=== PATIENT | female | born 1990 | race Caucasian/White ===

== ENCOUNTER 2017-10-31 11:52 | Emergency (ER) | payer BC, MEDICAID ==
--- NOTE | 2017-10-31 13:13 | EDM.PDOC ---
ED HPI GENERAL MEDICAL PROBLEM - General Chief Complaint: Headache Stated Complaint: headache Time Seen by Provider: 10/31/17 13:13 Source of Information: Reports: Patient History Limitations: Reports: No Limitations - History of Present Illness INITIAL COMMENTS - FREE TEXT/NARRATIVE: pt arrived with severe pain on the rt side of her neck and a severe headache. She has not had an injury. Onset: Gradual, Other ( This has been going on for the past few days. ) Duration: Hour(s): Location: Reports: Head, Neck Associated Symptoms: Reports: Headaches, Nausea/Vomiting Headache Pain Score (Numeric/FACES): 3 - Related Data Allergies Allergy/AdvReac Type Severity Reaction Status Date / Time acetaminophen [From Tylenol] Allergy Rash Verified 02/06/16 09:14 Penicillins Allergy Anaphylactic Verified 02/06/16 09:14 Shock zolpidem [From Ambien] Allergy Hallucinati Verified 02/06/16 09:14 ons Home Meds: Home Meds Albuterol/Ipratropium [Combivent Respimat] 1 puff INH DAILY 10/31/17 [History] Ibuprofen [Ibu] 1 tab PO Q8H PRN 10/31/17 [History] Ipratropium/Albuterol Sulfate [Iprat-Albut 0.5-3(2.5) MG/3 ML] 1 ampule INH DAILY 10/31/17 [History] predniSONE 1 tab PO DAILY PRN 10/31/17 [History] Past Medical History HEENT History: Reports: Impaired Vision Respiratory History: Reports: Asthma, Bronchitis, Recurrent, Pneumonia, Recurrent Genitourinary History: Reports: UTI, Recurrent 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: Musculoskeletal History: Reports: Arthritis Neurological History: Reports: Migraines Psychiatric History: Reports: Anxiety, Bipolar, Depression, Panic Attack, Psych Hospitalization(s) - Past Surgical History HEENT Surgical History: Reports: Adenoidectomy, Myringotomy w Tube(s), Tonsillectomy GI Surgical History: Reports: Appendectomy Female Surgical History: Reports: Section Musculoskeletal Surgical History: Reports: Arthroscopic Knee Social & Family History - Family History Family Medical History: Noncontributory - Tobacco Use Smoking Status *Q: Current Every Day Smoker Years of Tobacco use: 10 Packs/Tins Daily: 0.5 Second Hand Smoke Exposure: Yes - Caffeine Use Caffeine Use: Reports: Soda - Recreational Drug Use Recreational Drug Use: No ED ROS GENERAL - Review of Systems Review Of Systems: See Below Constitutional: Reports: No Symptoms HEENT: Reports: No Symptoms Respiratory: Reports: No Symptoms Cardiovascular: Reports: No Symptoms Endocrine: Reports: No Symptoms GI/Abdominal: Reports: Nausea, Vomiting Musculoskeletal: Reports: Muscle Stiffness, Other (muscle pain on the rt side of the neck. ) Skin: Reports: No Symptoms Neurological: Reports: No Symptoms - Physical Exam Exam: See Below Text/Narrative:: Pt is here with a severe headache on the rt side. It goes up the back of the neck. Exam Limited By: No Limitations General Appearance: Alert, Anxious, Moderate Distress Ears: Normal TMs Nose: Normal Inspection Throat/Mouth: Normal Inspection Head Exam: Atraumatic Neck: Tender Lateral, Other (pt is very tender in the post cervical area on the rt side. ) Respiratory/Chest: No Respiratory Distress Cardiovascular: Regular Rate, Rhythm GI/Abdominal: Soft, Non-Tender (Female) Exam: Deferred Rectal (Female) Exam: Deferred Neuro Exam (Abbreviated): Alert, Oriented, Normal Cognition Back Exam: Normal Inspection Extremities: Normal Inspection Course - Vital Signs Last Recorded V/S: Last Vital Signs Temp 36.1 C 10/31/17 16:11 Pulse 73 10/31/17 16:11 Resp 14 10/31/17 16:11 BP 100/59 L 10/31/17 16:11 Pulse Ox 97 10/31/17 16:11 - Orders/Labs/Meds Labs: Laboratory Tests 10/31/17 10/31/17 Range/Units 13:31 14:08 WBC 10.1 (4.5-11.0) K/uL RBC 4.85 (3.30-5.50) M/uL Hgb 14.9 (12.0-15.0) g/dL Hct 43.8 (36.0-48.0) % MCV 90 (80-98) fL MCH 31 (27-31) pg MCHC 34 (32-36) % Plt Count 278 (150-400) K/uL Neut % (Auto) 54 (36-66) % Lymph % (Auto) 34 (24-44) % [place] % (Auto) 9 H (2-6) % Eos % (Auto) 3 (2-4) % Baso % (Auto) 0 (0-1) % Urine HCG, Qual Negative Meds: Medications Discontinued Medications Generic Name Dose Route Start Last Admin Trade Name Tiffanie PRN Reason Stop Dose Admin Cyclobenzaprine HCl 10 mg 10/31/17 14:59 10/31/17 15:04 Flexeril PO 10/31/17 15:00 10 mg ONETIME ONE Administration Diphenhydramine HCl 25 mg 10/31/17 13:10 10/31/17 13:30 Benadryl IVPUSH 10/31/17 13:11 25 mg ONETIME ONE Administration Hydromorphone HCl 0.5 mg 10/31/17 14:59 10/31/17 15:04 Dilaudid IVPUSH 10/31/17 15:00 0.5 mg ONETIME ONE Administration Sodium Chloride 1,000 mls @ 999 mls/hr 10/31/17 13:15 10/31/17 13:44 Normal Saline IV 999 mls/hr ASDIRECTED ANTWAN Administration Ketorolac Tromethamine 30 mg 10/31/17 13:10 10/31/17 13:43 Toradol IVPUSH 10/31/17 13:11 30 mg ONETIME ONE Administration Ondansetron HCl 4 mg 10/31/17 13:09 10/31/17 13:29 Zofran IVPUSH 10/31/17 13:10 4 mg ONETIME ONE Administration Ondansetron HCl 4 mg 10/31/17 15:15 10/31/17 15:21 Zofran IVPUSH 10/31/17 15:16 4 mg ONETIME ONE Administration - Re-Assessments/Exams Free Text/Narrative Re-Assessment/Exam: 10/31/17 15:28 pt had a cervical spine series and a cat scan of the head which was neg. She was given torodol and dilaudid with good relief. She also received flexeril 10mg po, 10/31/17 16:00 Departure - Departure Time of Disposition: 16:01 Disposition: Home, Self-Care 01 Condition: Fair Clinical Impression: Cervical paraspinal muscle spasm, Headache - Discharge Information Instructions: Muscle Cramps and Spasms, [id number], General Headache Without Cause, [id number] Referrals: PCP,None [Primary Care Provider] - Forms: ED Department Discharge Care Plan Goals: moist warm packs to the left post cervical area, stretching exercises, flexeril 10mg hs, torodol 10mg q6h prn for pain. If not improving pt should receive PT
[2017-10-31] MEDS: Ondansetron 4 MG/2 ML SDV IVPUSH ONE ×2 (13:29→15:21)
[2017-10-31] MEDS: diphenhydrAMINE 50 MG/ML SDV IVPUSH ONE (13:30)
[2017-10-31] MEDS: Ketorolac 30 MG/ML SDV IVPUSH ONE (13:43)
[2017-10-31] MEDS: Sodium Chloride 0.9% 1,000 ML IV SCH (13:44)
--- NOTE | 2017-10-31 14:59 | CT ---
Head wo Cont HISTORY: severe headache. TECHNIQUE: Spiral noncontrast CT scan of the brain was obtained along with high-resolution bone windo w reconstructions. Auto dosage and iterative reconstruction techniques were employed. FINDINGS: No acute intracranial hemorrhage or infarct is identified. There is no mass lesion, mass effect, midl ine shift, or ventricular abnormality. No abnormal extra-axial fluid collections are seen. Visualized paranasal sinuses and mastoid air cells are clear. Bone windows show no evidence for skull fracture. IMPRESSION: No hemorrhage, infarct, or other acute intracranial abnormality is identified. Findings were discussed with Dr. Lopez in the emergency department at 1454 hours.
[2017-10-31] MEDS: HYDROmorphone 0.5 MG/0.5 ML Syringe IVPUSH ONE (15:04)
[2017-10-31] MEDS: Cyclobenzaprine 10 MG Tab PO ONE (15:04)
--- NOTE | 2017-10-31 15:23 | CR ---
Cervical Spine Min 4V HISTORY: severe pain in rt post cervical FINDINGS: Vertebral body alignment is satisfactory. No compression fracture or disk space narrowing is seen. Sp inous processes, posterior elements, and facet joints appear intact and in satisfactory alignment. Ne ural foramina appear widely patent on the oblique views. No odontoid abnormality can be seen. Prevert ebral soft tissues appear normal. IMPRESSION: No acute cervical spine abnormality is identified.
[2017-10-31 16:12] VITALS: BP 100/59
== END 2017-10-31 16:15 | disposition home or self-care (01) ==
LOC: JP.ED 11:52
DX: M62.830 Muscle spasm of back (principal); R51 Headache; F17.210 Nicotine dependence, cigarettes, uncomplicated; Z88.8 Allergy status to other drugs, medicaments and biological substances; Z79.899 Other long term (current) drug therapy
CPT/HCPCS: 36415; 70450; 72050; 81025; 85025; 96361; 96374; 96375; 96376; 99285; A9270; J1170; J1200; J1885; J2405; J7030

== ENCOUNTER 2024-01-17 07:22 | Emergency (ER) | payer SELFPAY ==
[2024-01-17] MEDS: Albuterol/Ipratropium 3.0-0.5 MG/3 ML Neb Soln NEB ONE ×2 (07:38→08:47)
[2024-01-17] MEDS: predniSONE 20 MG Tab PO ONE (07:49)
[2024-01-17 08:38] LABS: CORONAVIRUS COVID-19 NAA NEGATIVE (NEGATIVE); INFLUENZA A NAA NEGATIVE (NEGATIVE); INFLUENZA B NAA NEGATIVE (NEGATIVE); RESPIRATORY SYNCYTIAL VIR NAA NEGATIVE (NEGATIVE)
[2024-01-17 08:48] VITALS: BP 117/80; PULSE 99
== END 2024-01-17 09:35 | disposition home or self-care (01) ==
LOC: JP.ED 07:22
DX: J45.901 Unspecified asthma with (acute) exacerbation (principal); Z88.0 Allergy status to penicillin; Z88.8 Allergy status to other drugs, medicaments and biological substances; Z79.899 Other long term (current) drug therapy; Z90.49 Acquired absence of other specified parts of digestive tract
CPT/HCPCS: 0241U; 71045; 94640; 99285; J7512; J7620

== ENCOUNTER 2024-04-01 23:01 | Emergency (ER) | payer SELFPAY ==
[2024-04-01 23:14] VITALS: BP 140/60; PULSE 125
[2024-04-01] MEDS: Albuterol/Ipratropium 3.0-0.5 MG/3 ML Neb Soln NEB ONE (23:30)
[2024-04-02] MEDS: methylPREDNISolone Sodium Succinate 125 MG/2 ML SDV IM ONE (00:01)
[2024-04-02 00:10] LABS: BASOPHILS ABSOLUTE AUTO 0.03 K/uL (0.00-0.10); BASOPHILS PERCENT AUTO 0.3 % (0.1-1.3); EOSINOPHILS ABSOLUTE AUTO 0.09 K/uL (0.00-0.40); HEMATOCRIT 42.9 % (34.3-46.0); HEMOGLOBIN 15.2 g/dL (11.2-15.5); IMMATURE GRAN ABSOLUTE AUTO 0.18 K/uL (0.00-0.23); LYMPHOCYTES ABSOLUTE AUTO 1.11 K/uL (0.8-3.3); LYMPHOCYTES PERCENT AUTO 12.1 % (11.4-47.7); MEAN CORPUSCULAR HGB CONC 35.4 g/dL (31.6-35.5); MEAN CORPUSCULAR VOLUME 90.3 fL (81.4-99.0); MONOCYTES ABSOLUTE AUTO 0.96 K/uL (0.20-0.90); MONOCYTES PERCENT AUTO 10.5 % (3.3-12.6); NEUTROPHILS PERCENT AUTO 74.1 % (40.0-78.1); PLATELET COUNT,PLT 240 K/uL (130-375); RED BLOOD CELL COUNT 4.75 M/uL (3.77-5.24); WHITE BLOOD CELL COUNT,WBC 9.2 K/uL (3.2-11.0)
[2024-04-02 00:22] LABS: CALCIUM 8.9 mg/dL (8.5-10.1); CREATININE 0.8 mg/dL (0.6-1.0); EST CRCL DRUG DOSING (CG) 100.9 mL/min; POTASSIUM,K 3.6 mmol/L (3.6-5.2)
[2024-04-02 00:33] LABS: ANION GAP 11.6 mmol/L (5.0-14.0)
== END 2024-04-02 00:52 | disposition home or self-care (01) ==
LOC: JP.ED 23:01
DX: J45.909 Unspecified asthma, uncomplicated (principal); J06.9 Acute upper respiratory infection, unspecified; F17.210 Nicotine dependence, cigarettes, uncomplicated; Z88.0 Allergy status to penicillin; Z88.8 Allergy status to other drugs, medicaments and biological substances; Z79.51 Long term (current) use of inhaled steroids
CPT/HCPCS: 36415; 71046; 80048; 85025; 87428; 94640; 96372; 99285; J2919; J7620